=== PATIENT | female | born 1930 | race Caucasian/White ===

== ENCOUNTER → 2017-06-02 | Outpatient (CLI) | payer MEDICARE, OTHER ==
[~2017-06-02] MED LIST: ANASPAZ0.125 M1 FT; ANTIVERT GENERI25 MG PO; ASPIRIN 81MG TA81 MG PO; CIPRO 500MG TA500 MG PO; FERROUS SULFAT325 M1 PO; FERROUS SULFAT325 M2 PO; FUROSEMIDE 20MG20 MG PO; GABAPENTIN100 M1 PO; HYOSCYAMINE0.125 M1 PO; HYOSCYAMINE0.125 M6 SL; KEFLEX500 M1 PO; LASIX 20MG. TAB20 MG PO; LISINOPRIL5 MG PO; MACROBID 100MG100 MG PO; MELOXICAM15 MG PO; METOPROLOL 25 M25 MG PO; METOPROLOL SUCC25 M2 PO; TRIAMTERENE AND1 CAP PO; ZANTAC 150150 MG PO
--- NOTE | 2017-06-02 11:42 | RADIOLOGY REPORT PS360 ---
[id number] VIEWS HISTORY: Right shoulder pain ARTHROPATHY RT SHOULDER ORDERING PHYSICIAN: Bogdan Ignacio MD PATIENT AGE: 87 years COMPARISON: None FINDINGS: No fracture or dislocation. No lytic or blastic change. There is normal mineralization. Mild osteoarthritic changes are present at the acromioclavicular joint. There is moderate subacromial stenosis with superior migration of the humeral head. This may be seen with rotator cuff disease/tears and may be better evaluated with MRI if clinically warranted. 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
== END ==
LOC: RAD 11:01
DX: M19.019 Primary osteoarthritis, unspecified shoulder (principal)